=== PATIENT | female | born 1990 | race Two or more races ===

== ENCOUNTER 2019-02-17 07:00 | Emergency (ER) | payer OTHER ==
[~2019-02-17] VITALS: Ht 167.6 cm; Wt 56.7 kg
== END 2019-02-18 07:46 | disposition home or self-care (01) ==
LOC: ER 07:00
DX: O21.8 Other vomiting complicating pregnancy (principal); R42 Dizziness and giddiness; Z34.01 Encounter for supervision of normal first pregnancy, first trimester
CPT/HCPCS: 70551

== ENCOUNTER 2019-02-21 14:28 | Emergency (ER) | payer OTHER ==
[~2019-02-21] VITALS: Ht 172.7 cm; Wt 65.8 kg
== END 2019-02-21 21:05 | disposition home or self-care (01) ==
LOC: ER 14:28
DX: R42 Dizziness and giddiness (principal)

== ENCOUNTER 2019-07-16 09:33 | Outpatient (CLI) | payer OTHER | END 2019-07-16 13:23 | disposition home or self-care (01) | LOC: SONOGRAMA 09:33 | DX: N63.10 Unspecified lump in the right breast, unspecified quadrant (principal); N63.20 Unspecified lump in the left breast, unspecified quadrant ==

== ENCOUNTER 2019-08-30 09:16 | Inpatient (IN) | payer OTHER ==
[~2019-08-30] VITALS: Ht 172.7 cm; Wt 70.8 kg
[2019-08-30] MEDS ORDERED: VITAMIN C1000 MG PO (14:05)
[2019-08-30] MEDS ORDERED: FOLIC ACID PO (14:08)
[2019-08-30] MEDS ORDERED: B12 PO (14:11)
[2019-08-30] MEDS ORDERED: VITAMINA D PO (14:12)
[2019-09-10] MEDS ORDERED: NIFEDIPINE ER60 M1 PO (08:24)
[2019-09-10] MEDS ORDERED: OBSTETRIX ONE1 EACH PO (08:25)
[2019-09-10] MEDS ORDERED: FOLIC ACID0.8 M1 (08:25)
[2019-09-10] MEDS ORDERED: VITAMIN B122500 MCG PO (08:26)
[2019-09-10] MEDS ORDERED: VITAMIN D1000 UNIT PO (08:26)
== END 2019-09-12 14:48 | disposition home or self-care (01) | DRG 807 ==
LOC: OB/GYN 09-01 12:30 → SURG-SUITE 09-10 01:38 → LDR 09-10 01:38 → SURG-SUITE 09-10 10:45
PROVIDERS: ADMIT Obstetrics & Gynecology Maternal & Fetal Medicine
PROC: 10E0XZZ Delivery of Products of Conception, External Approach (ICD-10-PCS; principal; 2019-09-10)
PROC: 0KQM0ZZ Repair Perineum Muscle, Open Approach (ICD-10-PCS; 2019-09-10)
PROC: 4A1HXCZ Monitoring of Products of Conception, Cardiac Rate, External Approach (ICD-10-PCS; 2019-09-10)
DX: O70.1 Second degree perineal laceration during delivery (principal); Z37.0 Single live birth; Z3A.36 36 weeks gestation of pregnancy; Z22.330 Carrier of Group B streptococcus

== ENCOUNTER 2019-08-30 09:36 | Outpatient (CLI) | payer OTHER ==
[2019-08-30] MEDS ORDERED: VITAMIN C1000 MG PO (14:05)
[2019-08-30] MEDS ORDERED: FOLIC ACID PO (14:08)
[2019-08-30] MEDS ORDERED: B12 PO (14:11)
[2019-08-30] MEDS ORDERED: VITAMINA D PO (14:12)
== END 2019-08-30 11:44 | disposition home or self-care (01) ==
LOC: NST 09:36
DX: Z34.83 Encounter for supervision of other normal pregnancy, third trimester (principal)

== ENCOUNTER 2019-08-30 12:13 | Inpatient (IN) | payer OTHER ==
[~2019-08-30] VITALS: Ht 172.7 cm; Wt 72.6 kg
[2019-08-30] MEDS ORDERED: VITAMIN C1000 MG PO (14:05)
[2019-08-30] MEDS ORDERED: FOLIC ACID PO (14:08)
[2019-08-30] MEDS ORDERED: B12 PO (14:11)
[2019-08-30] MEDS ORDERED: VITAMINA D PO (14:12)
== END 2019-09-02 09:34 | disposition home or self-care (01) | DRG 833 ==
LOC: LDR 12:13 → OB/GYN 08-31 10:12
PROVIDERS: ADMIT Obstetrics & Gynecology
PROC: 4A1HXCZ Monitoring of Products of Conception, Cardiac Rate, External Approach (ICD-10-PCS; principal; 2019-08-30)
DX: O60.03 Preterm labor without delivery, third trimester (principal)

== ENCOUNTER 2022-06-17 19:01 | Emergency (ER) | payer OTHER ==
[~2022-06-17] VITALS: Ht 172.7 cm; Wt 65.8 kg
[~2022-06-17 19:01] MED LIST: B12 PO; FOLIC ACID PO; FOLIC ACID0.8 M1; NIFEDIPINE ER60 M1 PO; OBSTETRIX ONE1 EACH PO; VITAMIN B122500 MCG PO; VITAMIN C1000 MG PO; VITAMIN D1000 UNIT PO; VITAMINA D PO
[2022-06-17] MEDS ORDERED: SERTRALINE 25 MG. (19:33)
[2022-06-17] MEDS ORDERED: ADVIL (19:34)
[2022-06-18] MEDS ORDERED: TAMS0.4C PO (02:24)
[2022-06-18] MEDS ORDERED: KETO10TA2 PO (02:24)
[2022-06-18] MEDS ORDERED: BACTRIM DS TAB1 EACH PO (02:24)
== END 2022-06-18 02:36 | disposition home or self-care (01) ==
LOC: ER 19:01
DX: N20.2 Calculus of kidney with calculus of ureter (principal); N13.30 Unspecified hydronephrosis; K59.00 Constipation, unspecified

== ENCOUNTER 2023-02-23 18:17 | Inpatient (IN) | payer OTHER ==
[~2023-02-23] VITALS: Ht 170.2 cm; Wt 73.9 kg
[~2023-02-23 18:17] MED LIST changes: +ADVIL; +BACTRIM DS TAB1 EACH PO; +KETO10TA2 PO; +SERTRALINE 25 MG.; +TAMS0.4C PO
[2023-02-23] MEDS ORDERED: PRENATABS RX T1 EACH PO (18:26)
== END 2023-02-25 12:42 | disposition home or self-care (01) | DRG 807 ==
LOC: LDR 18:17 → OB/GYN 18:17
PROVIDERS: ADMIT Obstetrics & Gynecology; ATTEND Obstetrics & Gynecology
PROC: 10E0XZZ Delivery of Products of Conception, External Approach (ICD-10-PCS; principal; 2023-02-23)
PROC: 4A1HXCZ Monitoring of Products of Conception, Cardiac Rate, External Approach (ICD-10-PCS; 2023-02-23)
DX: O60.14X0 Preterm labor third trimester with preterm delivery third trimester, not applicable or unspecified (principal); Z37.0 Single live birth; Z3A.36 36 weeks gestation of pregnancy; Z20.822 Contact with and (suspected) exposure to COVID-19